=== PATIENT | female | born 1985 | race Caucasian/White ===

== ENCOUNTER 2017-06-13 21:19 | Emergency (ER) | payer BC ==
[~2017-06-13] VITALS: Ht 162.6 cm; Wt 76.2 kg
--- OUTSIDE RECORDS SUMMARY | 2017-06-13 21:20 | XMS REPORT | Clinical Summary ---
Author Author [facility] Organization [facility] Address Unknown Phone Unavailable Care Team Providers Care Teaching Young Name Role Phone David Rockwell MD PCP Allergies Active Allergy Reactions Severity Noted Date Comments Amoxicillin 07/26/2016 Sulfamethoxazole-Trimetho 07/26/2016 prim Penicillins 07/26/2016 Current Medications Prescription Sig. Disp. Refills Start End Date Status Date rizatriptan (MAXALT) 5 MG Take 1 tablet (5 mg 30 tablet 2 07/27/19 Active tabletIndications: Acute total) by mouth once as 15 nonintractable headache, needed for migraine. May unspecified headache type repeat in 2 hours if unresolved. Do not exceed 30 mg in 24 hours. atenolol (TENORMIN) 25 MG Take 1 tablet (25 mg 30 tablet 2 07/27/19 07/27/19 Active tabletIndications: Acute total) by mouth daily. 17 18 nonintractable headache, unspecified headache type Active Problems Not on file Encounters Date Type Specialty Care Team Description 07/26/2016 Office Visit Internal Medicine Mode Rockwell MD Acute nonintractable headache, unspecified headache type (Primary Dx); Obesity (BMI 30.0-34.9); Smoker after 06/12/2016 Family History Medical History Relation Name Comments Parkinsonism Father Depression Mother Diabetes Mother Hypertension Mother Relation Name Status Comments Father Alive Mother Alive Social History Tobacco Use Types Packs/Day Years Used Date Current Every Day Smoker Cigarettes 0.5 20 Tobacco Cessation: Ready to Quit: No; Counseling Given: Yes Alcohol Use Drinks/Week oz/Week Comments Yes Occasionally Sex Assigned at Date Recorded Not on file Last Filed Vital Signs Vital Sign Reading Time Taken Blood Pressure 123/78 07/26/2016 1:44 PM CDT Pulse 79 07/26/2016 1:44 PM CDT Temperature - - Respiratory Rate - - Oxygen Saturation - - Inhaled Oxygen - - Concentration Weight 81.2 kg (179 lb) 07/26/2016 1:44 PM CDT Height 162.6 cm (5' 4") 07/26/2016 1:44 PM CDT Body Mass Index 30.73 07/26/2016 1:44 PM CDT Plan of Treatment Health Maintenance Due Date Last Done Comments PAP SMEAR 12/22/2004 INFLUENZA VACCINE 09/13/2017 Results * Sedimentation rate (07/26/2016 2:39 PM) Component Value Ref Range Sedimentation rate 6 < OR=20 mm/h Specimen Performing Laboratory [facility] Narrative FASTING:YES * CBC with platelet and differential (07/26/2016 2:39 PM) Component Value Ref Range WBC 8.3 3.8 - 10.8 Thousand/uL RBC 4.63 3.80 - 5.10 Million/uL HGB 14.0 11.7 - 15.5 g/dL HCT 41.0 35.0 - 45.0 % MCV 88.8 80.0 - 100.0 fL MCH 30.3 27.0 - 33.0 pg MCHC 34.1 32.0 - 36.0 g/dL RDW 13.2 11.0 - 15.0 % Platelet count 184 140 - 400 Thousand/uL MPV 9.6 7.5 - 12.5 fL Neutrophils, absolute 5,627 1,500 - 7,800 cells/uL Lymphocytes, absolute 1,834 850 - 3,900 cells/uL Monocytes, absolute 556 200 - 950 cells/uL Eosinophils, absolute 249 15 - 500 cells/uL Basophils, absolute 33 0 - 200 cells/uL Neutrophils 67.8 % Lymphocytes 22.1 % Monocytes 6.7 % Eosinophils 3.0 % Basophils + RC 0.4 % Specimen Performing Laboratory [facility] Narrative FASTING:YES * C-reactive protein (07/26/2016 2:39 PM) Component Value Ref Range CRP 0.17 <0.80 mg/dL Comment: Please be advised that patients taking Carboxypenicillins may exhibit falsely decreased C-Reactive Protein levels due to an analytical interference in this assay. Specimen Performing Laboratory [facility] Narrative FASTING:YES * Thyroid stimulating hormone (07/26/2016 2:39 PM) Component Value Ref Range TSH 0.91 mIU/L Comment: Reference Range > or=20 Years 0.40-4.50 Ranges First trimester 0.26-2.66 Second trimester 0.55-2.73 Third trimester 0.43-2.91 Specimen Performing Laboratory [facility] Narrative FASTING:YES * Comprehensive metabolic panel (07/26/2016 2:39 PM) Component Value Ref Range Glucose 78 65 - 99 mg/dL Comment: Fasting reference interval BUN, whole blood 8 7 - 25 mg/dL Creatinine 0.68 0.50 - 1.10 mg/dL EGFR Non-Afr. [place] 116 > OR=60 mL/min/1.73m2 EGFR 134 > OR=60 mL/min/1.73m2 BUN/creatinine ratio NOT APPLICABLE 6 - 22 (calc) Sodium 139 135 - 146 mmol/L Potassium 4.1 3.5 - 5.3 mmol/L Chloride 109 98 - 110 mmol/L CO2 25 20 - 31 mmol/L Calcium 9.5 8.6 - 10.2 mg/dL Protein 6.9 6.1 - 8.1 g/dL Albumin, S 4.2 3.6 - 5.1 g/dL Globulin, total 2.7 1.9 - 3.7 g/dL (calc) Albumin/globulin ratio 1.6 1.0 - 2.5 (calc) Total bilirubin 0.3 0.2 - 1.2 mg/dL Alkaline phosphatase 47 33 - 115 U/L AST 12 10 - 30 U/L ALT 10 6 - 29 U/L Specimen Performing Laboratory [facility] Narrative FASTING:YES after 06/12/2016 Insurance Payer Benefit Subscriber ID Type Phone Address Plan / Group BCBS BCBS xxxxxxxxxxxx PPO CHOICE PPO/FERNA[id number] PPO
[2017-06-13 22:53] LABS: BASOPHILS % 0.3 % (0.0-1.0); EOSINOPHILS # (AUTO) 0.3 (0.0-0.4); EOSINOPHILS % 2.2 % (0.0-6.0); HEMATOCRIT 42.9 % (34.2-44.1); HEMOGLOBIN 14.6 g/dL (12.0-16.0); LYMPHOCYTES # (AUTO) 2.6 (1.0-3.2); LYMPHOCYTES % 20.9 % (18.0-39.1); MEAN CORPUSCULAR HEMOGLOBIN 30.5 pg (28-32); MEAN CORPUSCULAR VOLUME 89.6 fL (81-99); MONOCYTES # (AUTO) 0.7 (0.2-0.8); MONOCYTES % 5.8 % (4.4-11.3); NEUTROPHILS # (AUTO) 8.8 (2.1-6.9); NEUTROPHILS % 70.4 % (38.7-80.0); PLATELET COUNT 215 x10e3/uL (140-360); RED BLOOD COUNT 4.79 x10e6/uL (3.6-5.1); RED CELL DISTRIBUTION WIDTH 12.2 % (11.7-14.4)
[2017-06-13] MEDS ORDERED: MORPHINE SULFATE 4 MG/ML SYR IV PRN (23:00)
[2017-06-13] MEDS ORDERED: ONDANSETRON HCL 4 MG ORAL DISINTEGRATING TAB PO ONE (23:00)
[2017-06-13 23:07] LABS: BILIRUBIN,URINE NEGATIVE (NEGATIVE); CLARITY,URINE CLEAR (CLEAR); COLOR,URINE YELLOW (YELLOW); KETONES,URINE NEGATIVE (NEGATIVE); LEUKOCYTE ESTERASE ,URINE NEGATIVE (NEGATIVE); NITRITE,URINE NEGATIVE (NEGATIVE); PROTEIN,URINE DIPSTICK NEGATIVE (NEGATIVE); URINE UROBILINOGEN 0.2 mg/dL (0.2 - 1)
[2017-06-13 23:09] LABS: ALANINE AMINOTRANSFERASE 19 IU/L (0-55); ALBUMIN 3.9 g/dL (3.5-5.0); ALKALINE PHOSPHATASE 52 IU/L (40-150); BLOOD UREA NITROGEN 8 mg/dL (7-26); BUN/CREATININE RATIO 11 (6-25); CALCIUM 9.2 mg/dL (8.4-10.2); CARBON DIOXIDE 23 mmol/L (22-29); CHLORIDE 108 mmol/L (98-107); CREATININE, SERUM 0.76 mg/dL (0.57-1.11); EST GLOMERULAR FILTRATION RATE > 60 ML/MIN (60-); GLUCOSE 94 mg/dL (74-118); SODIUM 140 mmol/L (136-145)
[2017-06-13] MEDS ORDERED: MORPHINE SULFATE 2 MG/ML SYR ONE (23:26)
[2017-06-13 23:27] LABS: AMYLASE 48 U/L (25-125); LIPASE 33 U/L (8-78)
[2017-06-13 23:28] LABS: BACTERIA,URINE FEW /HPF; WBC,URINE (MAN) 0-5 /HPF (0-5)
[2017-06-13 23:29] LABS: EPITHELIAL CELLS,URINE MODERATE /LPF
[2017-06-13 23:34] LABS: PREGNANCY TEST, URINE NEGATIVE (NEGATIVE)
[2017-06-14] MEDS ORDERED: SODIUM CHLORIDE 0.9% 50ML 50 ML ONE (00:45)
[2017-06-14] MEDS ORDERED: IOPAMIDOL 370 MG/ML 200 ML INFUS..BTL INJ ONE (00:45)
--- NOTE | 2017-06-14 01:21 | Diagnostic Imaging Report ---
EXAM: CT ABDOMEN AND PELVIS with IV CONTRAST DATE: 06/14/2017 11:46 PM Time stamp on Exam: 0055 hours INDICATION: Abdominal pain, back pain COMPARISON: None TECHNIQUE: The abdomen and pelvis were scanned using a multidetector helical scanner. Coronal and sagittal reformations were obtained. Routine protocol performed. IV Contrast: 100 cc Isovue-370 Oral Contrast: Water CTDIvol has been reviewed. It is below the limits set by the Radiation Protocol Committee (RPC). FINDINGS: LOWER THORAX: No consolidations LIVER: No masses BILIARY: The gallbladder is unremarkable. No ductal dilation. SPLEEN: No masses PANCREAS: No masses ADRENALS: No nodules KIDNEYS: Symmetric perfusion. No enhancing masses. No hydronephrosis. GI TRACT: No distention, wall thickening or evidence of obstruction. Normal appendix. VESSELS: Unremarkable PERITONEUM/RETROPERITONEUM: No free air or fluid LYMPH NODES: No lymphadenopathy REPRODUCTIVE ORGANS: Unremarkable BLADDER: Unremarkable SOFT TISSUES: Tiny fat-containing umbilical hernia. BONES: No suspicious bone lesions. IMPRESSION: Normal CT of the abdomen and pelvis. Signed by: Dr. Keren Leo M.D. on 06/14/2017 1:17 AM
== END 2017-06-14 02:29 | disposition home or self-care (01) ==
LOC: ER 21:19
DX: R10.33 Periumbilical pain (principal); R10.13 Epigastric pain
CPT/HCPCS: 36415; 74177; 80053; 81001; 81025; 82150; 83690; 85025; 99284; Q9967; J2270